=== PATIENT | male | born 1935 | race Caucasian/White ===

== ENCOUNTER 2018-10-10 10:14 | Inpatient (IN) | payer MEDICARE ==
[2018-10-10] MEDS ORDERED: NS 0.9% 1000 ML** 1,000 ML IV ONE (10:30)
--- NOTE | 2018-10-10 10:37 | ED ---
Altered Mental Status - HPI Summary HPI Summary: Patient is an 82 y/o male brought in by EMS who presents to the ED c/o AMS s/p fall. As per EMS, his son last saw him normal at 19:00 last night. This morning he was found on the floor. EMS states that patient is more confused, seems to have RLE weakness, and has a bruise on his right tongue. He c/o strain to his left side. Patient denies any weakness, abdominal pain, WILLETT, CP, or SOB. BP while in room: 169/103. Patient is a poor historian due to his AMS. - History Of Current Complaint Stated Complaint: POSS STROKE PER EMS Time Seen by Provider: 10/10/18 10:21 Hx Obtained From: Patient, EMS, Medical Records Onset/Duration: Unknown Timing: Lasting Hours - Last known normal 19:00 last night Character: Confusion Aggravating Factor(s): Unknown Alleviating Factor(s): Unknown Associated Signs And Symptoms: Positive: Weakness - possible - Allergies/Home Medications Allergies/Adverse Reactions: Allergies Allergy/AdvReac Type Severity Reaction Status Date / Time No Known Allergies Allergy Verified 10/10/18 10:21 PMH/Surg Hx/FS Hx/Imm Hx Endocrine/Hematology History: Denies: Hx Diabetes, Hx Thyroid Disease Cardiovascular History: Reports: Hx Coronary Artery Disease, Hx Hypercholesterolemia - dyslipidemia, Hx Hypertension, Other Cardiovascular Problems/Disorders - stents Respiratory History: Denies: Hx Asthma, Hx Chronic Obstructive Pulmonary Disease (COPD) GI History: Denies: Hx Ulcer History: Reports: Hx Renal Disease - CKD Sensory History: Reports: Hx Contacts or Glasses Opthamlomology History: Reports: Hx Contacts or Glasses - Surgical History Surgery Procedure, Year, and Place: Cardiac Stent placement . Latest November 07, 2011 3 stents. Infectious Disease History: No Infectious Disease History: Denies: Hx Clostridium Difficile, Hx Hepatitis, Hx Human Immunodeficiency Virus (HIV), Hx of Known/Suspected MRSA, Hx Shingles, Hx Tuberculosis, Hx Known/ Suspected VRE, Hx Known/Suspected VRSA, History Other Infectious Disease, Traveled Outside the [place] in Last 30 Days - Family History Known Family History: Positive: Hypertension - Social History Alcohol Use: None Hx Substance Use: No Substance Use Type: Reports: None Hx Tobacco Use: No Smoking Status (MU): Never Smoked Tobacco Have You Smoked in the Last Year: No Review of Systems Negative: Chest Pain Negative: Shortness Of Breath Negative: Abdominal Pain Positive: Other - left-side strain Negative: Headache, Weakness All Other Systems Reviewed And Are Negative: Yes Physical Exam - Summary Physical Exam Summary: Appearance: well appearing, no pain distress Skin: warm, dry, reflects adequate perfusion, no bruises Head/face: normal, no obvious injury Eyes: EOMI, VICKY ENT: mucous membranes moist, contusion on right posterior tongue Neck: supple, non-tender Respiratory: bilateral expiratory wheezes, breath sounds present Cardiovascular: regular rate, irregularly irregular rhythm, pulses symmetrical, no LE edema Abdomen: non-tender, soft Bowel Sounds: present Musculoskeletal: normal, strength/ROM intact Neuro: alert and oriented to person only, slow tremulous motions, some difficulty following commands Triage Information Reviewed: Yes Vital Signs On Initial Exam: Initial Vitals Temp Pulse Resp BP Pulse Ox 98.2 F 79 22 169/103 93 10/10/18 10:19 10/10/18 10:19 10/10/18 10:19 10/10/18 10:19 10/10/18 10:19 Vital Signs Reviewed: Yes - [place] Coma Scale Best Eye Response: 4 - Spontaneous Best Motor Response: 6 - Obeys Commands Best Verbal Response: 4 - Confused Coma Scale Total: 14 Diagnostics - Vital Signs Vital Signs Temp Pulse Resp BP Pulse Ox 10/10/18 10:19 98.2 F 79 22 169/103 93 - Laboratory Result Diagrams: 10/10/18 10:40 10/10/18 10:40 Lab Statement: Any lab studies that have been ordered have been reviewed, and results considered in the medical decision making process. - Radiology CXR Radiology Interpretation Completed By: Radiologist Summary of Radiographic Findings: No radiographic evidence for acute cardiopulmonary abnormality on this. portable chest x-ray. ED physician reviewed radiology report. Brain CT Radiology Interpretation Completed By: Radiologist Summary of Radiographic Findings: 1. No CT apparent acute intracranial abnormality. 2. Chronic findings similar to the September 26, 2013 CT of the brain include involutional changes and evidence of chronic microvascular disease. ED physician reviewed radiology report. - EKG 10:35 Cardiac Rate: NL - 80 bpm EKG Rhythm: Sinus Rhythm ST Segment: Non-Specific EKG Comparison: No Significant Change - as compared to August 2013 Summary of EKG Findings: 1st degree AV block, sinus pause, nl axis National Institutes Of Health - NIH Scale Level of Consciousness: Alert/Keenly Responsive Ask Patient the Month and His/Her Age: Both Correct Ask Pt to Open/Close Eyes and Geodetic Survey Director/Release Non-Paretic Hand: Both Correctly Best Gaze (Only Horizontal Eye Movement): Normal Visual Field Testing: No Visual Loss Facial Paresis-Pt to Smile & Close Eyes or Grimace Symmetry: Normal/Symmetrical Motor Function - Right Arm: No Drift-Holds 10 Seconds Motor Function - Left Arm: No Drift-Holds 10 Seconds Motor Function - Right Leg: No Drift-Holds 10 Seconds Motor Function - Left Leg: No Drift-Holds 10 Seconds Limb Ataxia-Must be out of Proportion to Weakness Present: Absent Sensory (Use Pinprick to Test Arms/Legs/Trunk/Face): Normal Best Language (Describe Picture, Name Items): No Aphasia Dysarthria (Read Several Words): Normal Extinction and Inattention: No Abnormality Total Score: 0 Altered Mental Statu Course/Dx - Course Course Of Treatment: Nurse's notes reviewed. Patient with fall prior to arrival. He is found to be increasingly confused and ataxic. He normally walks without any assistive device. He has no obvious source of infection and currently demonstrates an NIH stroke score of 1 as he is unable to name the month. At first it seemed that he had some left-sided neglect however this is not consistent. There is concern for NPH given the size of his ventricles on CT , his ataxia. I have not seen any episodes of incontinence. Seizure is a possibility given the contusion on the lateral aspect of his right tongue. No seizure history or postictal phase was witnessed. He is not known to have dementia. Hospitalist was contacted and will admit for further testing. - Diagnoses Differential Diagnosis/HQI/PQRI: Hypoglycemia, Injury, Intracranial Bleed, Meningitis, Metabolic Disorder, Sepsis, Seizure, TIA Provider Diagnoses: Fall, Tongue injury, Delirium, Ataxia - Provider Notifications Discussed Care Of Patient With: Satnam Montiel Time Discussed With Above Provider: 12:06 Instructed by Provider To: Admit As Inpatient Discharge - Sign-Out/Discharge Documenting (check all that apply): Patient Departure - Admit Patient Received Moderate/Deep Sedation with Procedure: No - Discharge Plan Condition: Fair Disposition: ADMITTED TO [facility] Referrals: Campos Mcclelland MD [Primary Care Provider] - - Billing Disposition and Condition Condition: FAIR Disposition: Admitted to [facility] - Attestation Statements Document Initiated by Kay: Yes Documenting Scribe: Mis Sherman Provider For Whom Kay is Documenting (Include Credential): Robert Black MD Scribe Attestation: Mis Raza, scribed for Robert Black MD on 10/10/18 at 1325. Scribe Documentation Reviewed: Yes Provider Attestation: The documentation as recorded by the Mis dodge accurately reflects the service I personally performed and the decisions made by , Robert Black MD Status of Scribe Document: Viewed
[2018-10-10 10:50] LABS: ABS Eosinophils 0.1 10^3/ul (0-0.6); ABS Lymphocytes 0.7 10^3/ul (1.0-4.8); ABS Monocytes 0.6 10^3/ul (0-0.8); ABS Neutrophils 5.7 10^3/ul (1.5-7.7); Eosinophil % 1.5 %; Hematocrit 37 % (42-52); Hemoglobin 12.9 g/dL (14.0-18.0); Lymphocyte % 9.8 %; Mean Corpuscular HGB Conc 34 g/dL (31-36); Mean Corpuscular Hemoglobin 33 pg (27-31); Mean Corpuscular Volume 95 fL (80-94); Mean Platelet Volume 6.4 fL (7.4-10.4); Nucleated Red Blood Cells % 0.1; Platelet Count 205 10^3/uL (150-450); Red Blood Count 3.96 10^6 /uL (4.18-5.48); Red Cell Distribution Width 14 % (10.5-15); White Blood Count 7.1 10^3/uL (3.5-10.8)
[2018-10-10 10:55] LABS: INR 1.09 (0.82-1.09)
[2018-10-10 11:06] LABS: Albumin 4.2 g/dL (3.2-5.2); Albumin/Globulin Ratio 1.4 (1-3); BUN/Creatinine Ratio 33.7 (8-20); Calcium 9.8 mg/dL (8.6-10.3); EGFR African American 85.4 (>60); EGFR Non-African American 70.5 (>60); Globulin 2.9 g/dL (2-4); Magnesium 1.7 mg/dL (1.9-2.7); Potassium 3.9 mmol/L (3.5-5.0); Total Bilirubin 0.6 mg/dL (0.2-1.0); Total Protein 7.1 g/dL (6.4-8.9)
[2018-10-10 11:09] LABS: Troponin I 0.01 ng/mL (<0.04)
[2018-10-10 11:43] LABS: TSH (Thyroid Stimulating Horm) 3.14 mcIU/mL (0.34-5.60)
[2018-10-10 12:15] LABS: Urine Appearance Clear; Urine Bacteria Absent (Absent); Urine Bilirubin Negative (Negative); Urine Blood 1+ (Negative); Urine Color Yellow; Urine Glucose Negative (Negative); Urine Ketones 1+ (Negative); Urine Nitrite Negative (Negative); Urine Protein Negative (Negative); Urine Red Blood Cell 2+(6-10/hpf) (Absent); Urine Specific Gravity 1.014 (1.010-1.030); Urine Urobilinogen Negative (Negative); Urine White Blood Cell Absent (Absent)
[2018-10-10 14:12] LABS: Prolactin 14.1 ng/mL (1.0-20.0)
--- NOTE | 2018-10-10 16:51 | HP ---
ADMITTING HISTORY AND PHYSICAL: DATE OF ADMISSION: 10/10/18 CHIEF COMPLAINT: Mental status changes. HISTORY OF PRESENT ILLNESS: The patient is an 82-year-old gentleman with a known history of diabetes, hypothyroidism as well as CAD status post CABG , who was in his usual state of health until this morning. He was last found normal at 7 p.m. last night and a few hours prior to this admission, his son heard a thud in the house and the patient subsequently was found down on the bathroom floor. The son observed that the patient was confused and seemed to be complaining that he was hurting at that time. The patient's son denied that he saw the patient unconscious and was interacting throughout the whole episode ; however, confused. PAST MEDICAL AND SURGICAL HISTORY: coronary artery disease with stents, he mentions that he has not had any stents in; history of hypercholesterolemia; dyslipidemia; hypertension. ALLERGIES: NKDA. FAMILY HISTORY: Unremarkable. SOCIAL HISTORY: Could not be obtained. The patient lives with his who has dementia and his son, Dawit, at [phone]. REVIEW OF SYSTEMS: Could not be reliably obtained given the patient's mental status change. PHYSICAL EXAMINATION GENERAL APPEARANCE: The patient is unfortunately not oriented and a poor historian, but awake. VITAL SIGNS: Revealed blood pressure of 127/89, saturating at 96% at room air, 74 beats per minute heart rate, respiratory rate of 17 per minute. HEENT: Normocephalic, atraumatic. PERRLA. Extraocular muscles intact. Negative for icterus. Moist oral mucosa. Negative throat erythema. NECK: Soft, supple, with no cervical lymphadenopathy. No JVD. CHEST: Clear to auscultation bilaterally. Good air entry. No wheezes, rales. No rhonchi. HEART: S1, S2 within normal limits. Regular rate and rhythm. No murmurs, rubs or gallops. ABDOMEN: Soft, nondistended, nontender, normoactive bowel sounds x4 quadrants. EXTREMITIES: No cyanosis, clubbing, nor edema. PSYCHIATRIC: No active psychosis, depression, suicidal, nor homicidal ideation. SKIN: Warm to touch. DIAGNOSTIC STUDIES/LABORATORY DATA: Most recent and pertinent laboratories drawn show CBC with WBC of 7.1, platelets of 205, H and H of 12.9 and 37. Normal sodium and potassium. BUN and creatinine of 34 and 1.01. UA of 1.014 with no pyuria and no leukocyte esterase. Chest x-ray shows no acute disease. EKG shows sinus arrhythmia with 80 beats per minute with no ST segment changes and QTc of 462. Brain CT shows no acute disease. ASSESSMENT AND PLAN: The patient is an 82-year-old gentleman with history of diabetes, hypothyroidism, and coronary artery disease, being admitted for mental status change causing a fall. 1. Mental status change and confusion and fear. Cause: According to the patient's son, the patient does not have any history of dementia, although it is possible that the patient may have some mild cognitive deficit. His laboratory workup does not suggest an acute infectious process with negative UA as well as a chest x-ray. We will obtain an MRI of the brain. Given hematoma on the right side of the tongue, it is possible that the patient may have had seizures and I will obtain EEG and obtain serum prolactin and we will touch base with Dr. Diaz. 2. Coronary artery disease. We will continue dual antiplatelet therapy. Unclear why the patient is not on any statins and we will obtain LDL in a.m., and if not at goal, we will place the patient on statin. It is possible that given his advanced age, there might have been a discussion in the past for this to have been discontinued but unclear of the reason. 3. DVT prophylaxis. We will place the patient on heparin subcu. 4. Disposition. For PT eval. [id number] #: [id number]/CPS #: [id number] ANYI
[2018-10-10] MEDS: Heparin VIAL(*) 5000 UNITS/ML VIAL (FIVE THOUSAND) SUBCUT SCH (20:12)
[2018-10-11 06:59] LABS: ABS Eosinophils 0.1 10^3/ul (0-0.6); ABS Lymphocytes 1.1 10^3/ul (1.0-4.8); ABS Monocytes 0.8 10^3/ul (0-0.8); ABS Neutrophils 4.3 10^3/ul (1.5-7.7); Eosinophil % 2.2 %; Hematocrit 36 % (42-52); Hemoglobin 12.4 g/dL (14.0-18.0); Lymphocyte % 17.6 %; Mean Corpuscular HGB Conc 34 g/dL (31-36); Mean Corpuscular Hemoglobin 32 pg (27-31); Mean Corpuscular Volume 94 fL (80-94); Mean Platelet Volume 6.7 fL (7.4-10.4); Nucleated Red Blood Cells % 0.1; Platelet Count 204 10^3/uL (150-450); Red Blood Count 3.86 10^6 /uL (4.18-5.48); Red Cell Distribution Width 14 % (10.5-15); White Blood Count 6.4 10^3/uL (3.5-10.8)
[2018-10-11 07:18] LABS: Albumin 3.9 g/dL (3.2-5.2); Albumin/Globulin Ratio 1.4 (1-3); Calcium 9.6 mg/dL (8.6-10.3); EGFR African American 100.1 (>60); EGFR Non-African American 82.7 (>60); Globulin 2.8 g/dL (2-4); HDL Cholesterol 44.1 mg/dL; Magnesium 1.5 mg/dL (1.9-2.7); Phosphorus 3.1 mg/dL (2.5-5.0); Potassium 3.6 mmol/L (3.5-5.0); Total Bilirubin 0.9 mg/dL (0.2-1.0); Total Protein 6.7 g/dL (6.4-8.9)
[2018-10-11] MEDS: Magnesium Sulf 4 GM/100 ML IV* 4,000 MG/100 ML BAG IVPB ONE ×2 (10:01→14:41)
[2018-10-11] MEDS: Calcitriol CAP* 0.25 MCG PO SCH (10:03)
[2018-10-11] MEDS: Aspirin 81 mg CHEW TAB* 81 MG TAB.CHEW PO SCH (10:03)
[2018-10-11] MEDS: Clopidogrel TAB* 75 MG PO SCH (10:03)
[2018-10-11] MEDS: Heparin VIAL(*) 5000 UNITS/ML VIAL (FIVE THOUSAND) SUBCUT SCH ×2 (10:03→19:59)
--- NOTE | 2018-10-11 10:45 | HP ---
ADDENDUM: ALLERGIES: NKDA. SOCIAL HISTORY: Could not be obtained. The patient lives with his who has dementia and his son, Dawit, at [phone]. PHYSICAL EXAMINATION GENERAL APPEARANCE: The patient is unfortunately not oriented and a poor historian, but awake. VITAL SIGNS: Revealed blood pressure of 127/89, saturating at 96% at room air, 74 beats per minute heart rate, respiratory rate of 17 per minute. HEENT: Normocephalic, atraumatic. PERRLA. Extraocular muscles intact. Negative for icterus. Moist oral mucosa. Negative throat erythema. NECK: Soft, supple, with no cervical lymphadenopathy. No JVD. CHEST: Clear to auscultation bilaterally. Good air entry. No wheezes, rales. No rhonchi. HEART: S1, S2 within normal limits. Regular rate and rhythm. No murmurs, rubs or gallops. ABDOMEN: Soft, nondistended, nontender, normoactive bowel sounds x4 quadrants. EXTREMITIES: No cyanosis, clubbing, nor edema. PSYCHIATRIC: No active psychosis, depression, suicidal, nor homicidal ideation. SKIN: Warm to touch. DIAGNOSTIC STUDIES/LABORATORY DATA: Most recent and pertinent laboratories drawn show CBC with WBC of 7.1, platelets of 205, H and H of 12.9 and 37. Normal sodium and potassium. BUN and creatinine of 34 and 1.01. UA of 1.014 with no pyuria and no leukocyte esterase. Chest x-ray shows no acute disease. EKG shows sinus arrhythmia with 80 beats per minute with no ST segment changes and QTc of 462. Brain CT shows no acute disease. ASSESSMENT AND PLAN: The patient is an 82-year-old gentleman with history of diabetes, hypothyroidism, and coronary artery disease, being admitted for mental status change causing a fall. 1. Mental status change and confusion and fear. Cause: According to the patient's son, the patient does not have any history of dementia, although it is possible that the patient may have some mild cognitive deficit. His laboratory workup does not suggest an acute infectious process with negative UA as well as a chest x-ray. We will obtain an MRI of the brain. Given hematoma on the right side of the tongue, it is possible that the patient may have had seizures and I will obtain EEG and obtain serum prolactin and we will touch base with Dr. Diaz. 2. Coronary artery disease. We will continue dual antiplatelet therapy. Unclear why the patient is not on any statins and we will obtain LDL in a.m., and if not at goal, we will place the patient on statin. It is possible that given his advanced age, there might have been a discussion in the past for this to have been discontinued but unclear of the reason. 3. Question of history of diabetes and hypothyroidism. The patient is currently not on any medications regarding these and hence we will obtain TSH and we will continue to monitor blood sugars, which currently appear to be normal. 4. DVT prophylaxis. We will place the patient on heparin subcu. 5. Disposition. For PT laryal. [id number]/[facility] #: [id number]
--- NOTE | 2018-10-11 16:40 | PN ---
Subjective Date of Service: 10/11/18 Interval History: Pt seen and examined. Meds and labs reviewed. CC: N/A ROS: Denied WILLETT/dizziness, F/C, N/V, CP, SOB, increased cough, sputum production , abd pain, diarrhea, constipation, dysuria, myalgias, arthralgias, throat pain , and new skin lesions. The rest of the 14 point ROS are unremarkable. PHYSICAL EXAM: GEN APPEARANCE: Awake, not in acute distress, not oriented x 4 HEENT: NC/AT, PERRLA, moist oral mucosa, (-) throat erythema NECK: Soft, supple, (-) cervical LAD, (-)JVD HEART: S1S2 WNL, RRR, No MRG CHEST: CTA, BL, GAE, No W/R/R ABD: Soft, ND/NT, NABS 4x Q EXT: No C/C/E SKIN: Warm to touch PSYCH: No active psychosis, hallucinations, depression, SI/HI Objective Active Medications: Aspirin (Aspirin 81 Mg Chew Tab*) 81 mg PO DAILY [facility] Last Admin: 10/11/18 10:03 Dose: 81 mg Atorvastatin Calcium (Lipitor*) 80 mg PO 2100 ONE Stop: 10/11/18 21:01 Calcitriol (Rocaltrol Cap*) 0.25 mcg PO DAILY [facility] Last Admin: 10/11/18 10:03 Dose: 0.25 mcg Clopidogrel Bisulfate (Plavix Tab*) 75 mg PO DAILY [facility] Last Admin: 10/11/18 10:03 Dose: 75 mg Heparin Sodium (Porcine) (Heparin Vial(*)) 5,000 units SUBCUT Q12HR [facility] Last Admin: 10/11/18 10:03 Dose: 5,000 units Vital Signs - 8 hr 10/11/18 15:34 Temperature 97.6 F Pulse Rate 86 Respiratory 16 Rate Blood Pressure 154/96 (mmHg) O2 Sat by Pulse 93 Oximetry Oxygen Devices in Use Now: None Result Diagrams: 10/11/18 06:34 10/11/18 06:34 Microbiology and Other Data: Microbiology 10/10/18 11:37 Aerobic Blood Culture - Preliminary Blood Venous No Growth Day 1 Anaerobic Blood Culture - Preliminary No Growth Day 1 10/10/18 10:40 Aerobic Blood Culture - Preliminary Blood Venous No Growth Day 1 Anaerobic Blood Culture - Preliminary No Growth Day 1 Assess/Plan/Problems-Billing Assessment: - Patient Problems (1) Change in mental status Current Visit: Yes Status: Acute Code(s): R41.82 - ALTERED MENTAL STATUS, UNSPECIFIED SNOMED Code(s): 549437633 Comment: -Likely due to an undiagnosed dementia w/behavioral issues -Will hold off on Depakote and/or Gabapentin unless pt is difficult to re-direct -MRI: NAD; no signs consistent w/CVA -Will await official input from Neuro (2) CAD (coronary artery disease) Current Visit: Yes Status: Acute Code(s): I25.10 - ATHSCL HEART DISEASE OF [place] CORONARY ARTERY W/O ANG PCTRS SNOMED Code(s): 46373009 Comment: -Continue DAPT and statins (3) DVT prophylaxis Current Visit: Yes Status: Acute Code(s): Z29.9 - ENCOUNTER FOR PROPHYLACTIC MEASURES, UNSPECIFIED SNOMED Code(s): 611646420 Comment: -Continue Heparin SQ Status and Disposition: -D/W pts son today and mentions given above diagnosis and currently taking care of his mother who also carries a diagnosis of dementia, that he would prefer his father to go to [facility] first and then decide to further bring him home depending on how he does vs. converting him to LTC in facility -Will discuss w/care coordinators in AM
--- NOTE | 2018-10-11 16:49 | CONS ---
NEUROLOGY CONSULTATION NOTE: DATE OF SERVICE: 10/11/18 CONSULTING PROVIDER: Satnam Montiel MD. REASON FOR CONSULT: Mental status change and confusion. CHIEF COMPLAINT: Confusion. HISTORY OF PRESENT ILLNESS: Mr. Lake is an 82-year-old right-handed man who has a known history of undiagnosed dementia, who presented to [facility] on 10/10/18 after a fall. The history was obtained by discussing the case with the patient's son, Dawit, via telephone, as the patient is demented and cannot provide any medical history. The patient is only alert to self, but not place or time. According to Dawit, Mr. Lake has been "getting old and his mind is not the same"; he seems confused all the time. He stopped driving 1 year ago due to the progressive confusion. The patient still is able to feed himself, but not cook. He is able to dress himself. Dawit is taking care of both parents for whom his mother suffers from Alzheimer's dementia. However, the patient has a different type of memory problem, and according to Dawit, it is mostly affecting his critical thinking and it is progressively declining. The patient apparently fell going to the bathroom yesterday. He could not communicate if he had any pain. This was new according to Dawit. He was not able to stand up and ambulate. He felt off balance. Dawit was able to get him up and place him in a nearby bed. There has been no recent illnesses. The patient is afebrile. The patient does not use any assistive device to ambulate. Dawit stated that the patient's balance has worsened and he usually has to use two trekking poles when walking around the house. The patient denied any headaches or visual disturbance. The patient had a CT of the head that showed no acute intracranial abnormality with cortical atrophy and ventriculomegaly. 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 An MRI of the brain was obtained, there was no evidence of stroke. This was a motion degraded study. I discussed the case with Dr. Marinelli, who reassured that the CAT scan has not significantly changed since 2013. The patient does have history of urinary incontinence and memory problems, but does not have the magnetic gait. PAST MEDICAL HISTORY: Dementia. MEDICATIONS: Plavix 75 mg p.o. daily. The patient was started on aspirin and high dose atorvastatin. FAMILY HISTORY: Unknown due to the patient's dementia. SOCIAL HISTORY: The patient lives with his spouse and son. He denied any alcohol or tobacco use. REVIEW OF SYSTEMS: A 14-point review of systems was obtained and otherwise negative, but I do not think review of systems was accurate, as the patient denied any symptoms. PHYSICAL EXAMINATION: General: A well-nourished, disheveled, elderly man in no acute distress. He is inappropriately laughing throughout the history process. Head: Normocephalic without obvious abnormality. Eyes: Conjunctivae/ corneas are clear. Neck is supple and symmetrical with no carotid bruits. Lungs are clear to auscultation bilaterally. Cardiovascular: Regular rate and rhythm. Extremities: Normal range of motion with no cyanosis. Skin: Mild ecchymosis in the extensor portion of the forearms. Psych: Affect is broad with elevated mood. Inappropriate laughter. Neurological Examination: Awake and alert to only self, but he is not alert place or time. He has severe psychomotor slowing due to dementia. Cranial Nerves: Normal to confrontation testing bilaterally. Pupils are mid range and reactive to light. Normal consensual response. Sensation is intact on the forehead, cheeks, and jaw to light touch. No facial droop. He is able to hear throughout the history process. Tongue is symmetrical, midline with no atrophy or fasciculation. Motor Examination: No abnormal movements or pronator drift. He has increase in tone in left upper and lower extremities. Normal tone in the right upper extremity. He has bilateral action induced tremors. Otherwise, strength is 5/ 5 throughout. Reflexes, right/left: Brachioradialis 2/3, biceps 2/3, triceps 2 /3, patella 2/3, ankle 2/2, plantar flexor/flexor. Sensation is intact to light touch throughout. Coordination: Normal naltma-wb-bfea. Gait: Wide based gait, spastic gait. No ataxia. LABORATORY DATA: WBC 6.4, hemoglobin of 12.4, hematocrit of 36, platelet count of 204. Sodium 136, potassium 3.6, creatinine is 0.88, hemoglobin A1c 5.8, magnesium 1.5, LDL 170, TSH 3.14. Urinalysis negative for pyuria. ASSESSMENT AND RECOMMENDATIONS: Mr. Shahbaz Lake is an 82-year-old man who presented with an episode of worsening confusion. 1. Fall, followed by worsening of dementia - I do not think that the patient has encephalopathy, but mostly progressive dementia. The etiology of the acutely worsening dementia is unclear at this time. He does not have a stroke. We will check for possible vitamin deficiency. His TSH is within normal range. He has no underlying infections. I have ordered a vitamin B12 level. Seizures can definitely be a cause of his sudden onset disorientation and fall. He does have an arachnoid cyst compressing on the left temporal lobe, which can cause seizures; therefore, I am starting him on levetiracetam 250 mg twice daily to prevent further seizures is recommended. 2. Ventriculomegaly - there is slight disproportion of ventriculomegaly to the cortical volume loss. However, this has been present since 2013, although he does have 2/3 triads for normal pressure hydrocephalus, I do not think this is the cause of his acute change in mentation. I do recommend further evaluation by neurosurgery as an outpatient. He may be a candidate to undergo an LP to relieve some of the CSF elevated pressure and clinically monitor his symptoms. This cannot be done as an outpatient given that he is on Plavix and Plavix will need to be held for at least 7 days. 3. Dementia - the differential diagnosis given his frontotemporal atrophy is frontotemporal dementia, although can entirely exclude chronic normal pressure hydrocephalus. We will rule out any vitamin B12 related memory problems. Hold off any treatment for the dementia. Recommend starting treatment as an outpatient. I will continue to follow. TIME SPENT: I spent a total of 70 minutes of which more than 50% of this was spent on obtaining history, evaluating the patient, examining the patient, and discussing the treatment plan with Dawit and the primary provider. [id number]/[facility]PS #: [id number] ANYI
[2018-10-11] MEDS ORDERED: Atorvastatin* 80 MG TAB PO ONE (21:00)
--- NOTE | 2018-10-11 23:34 | EEG ---
ELECTROENCEPHALOGRAPHY REPORT: DATE OF STUDY: 10/11/18 - ROOM #450 DATE READ: 10/11/18 DURATION: 8:48 a.m. to 9:28 a.m. ORDERED BY: Dr. Satnam Montiel. MEDICATIONS: 1. Aspirin. 2. Plavix. 3. Heparin. 4. Rocaltrol. INDICATION: Mr. Lake is an 82-year-old man who has a history of dementia, who presented with unresponsive episode of seizure-like activity. This EEG was requested to evaluate for epileptiform discharges or electrographic seizures. This EEG was ordered by Dr. Satnam Montiel. CLINICAL STATE: Waking. REPORT: The background consisted of a mixed frequency slowing in the delta and theta range with appropriate organization with clearly defined anterior- posterior voltage. There was a slow waking background rhythm of 7 Hz, which was symmetrical and showed normal reactivity. Anteriorly, there was an expected pattern of lower voltage, irregular mixed faster frequencies. The most prominent feature of this recording was a nearly continuous delta mixed with theta slowing over the left temporal region. There were no epileptiform discharges or electrographic seizures. Single electrode EKG showed sinus tachycardia with a rate of 110 beats per minute. Photic stimulation and hyperventilation were not performed. IMPRESSION: This is an abnormal waking EEG due to slow posterior dominant rhythm and prominent delta slowing over the left frontotemporal region. Otherwise, there was some retained organization or activity. These findings are suggestive of a mild nonspecific encephalopathy, which can be seen in the setting of neurodegenerative disorder with prominent slowing over the left frontotemporal region suggestive of a focal neuronal dysfunction in that area. There were no clear epileptiform discharges or electrographic seizures. [id number]/[facility] #: [id number] [facility]
[2018-10-12] MEDS ORDERED: Magnesium Sulf 4 GM/100 ML IV* 4,000 MG/100 ML BAG IVPB ONE (09:00)
[2018-10-12] MEDS: Calcitriol CAP* 0.25 MCG PO SCH (10:21)
[2018-10-12] MEDS: Clopidogrel TAB* 75 MG PO SCH (10:21)
[2018-10-12] MEDS: Aspirin 81 mg CHEW TAB* 81 MG TAB.CHEW PO SCH (10:21)
[2018-10-12] MEDS: Heparin VIAL(*) 5000 UNITS/ML VIAL (FIVE THOUSAND) SUBCUT SCH ×2 (10:21→20:33)
--- NOTE | 2018-10-12 16:11 | PN ---
Subjective Date of Service: 10/12/18 Interval History: Pt seen and examined. Meds and labs reviewed. CC: N/A ROS: Denied WILLETT/dizziness, F/C, N/V, CP, SOB, increased cough, sputum production , abd pain, diarrhea, constipation, dysuria, myalgias, arthralgias, throat pain , and new skin lesions. The rest of the 14 point ROS are unremarkable. PHYSICAL EXAM: GEN APPEARANCE: Awake, not in acute distress, not oriented x 4 HEENT: NC/AT, PERRLA, moist oral mucosa, (-) throat erythema NECK: Soft, supple, (-) cervical LAD, (-)JVD HEART: S1S2 WNL, RRR, No MRG CHEST: CTA, BL, GAE, No W/R/R ABD: Soft, ND/NT, NABS 4x Q EXT: No C/C/E SKIN: Warm to touch PSYCH: No active psychosis, hallucinations, depression, SI/HI Objective Active Medications: Aspirin (Aspirin 81 Mg Chew Tab*) 81 mg PO DAILY [facility] Calcitriol (Rocaltrol Cap*) 0.25 mcg PO DAILY [facility] Last Admin: 10/12/18 10:21 Dose: 0.25 mcg Clopidogrel Bisulfate (Plavix Tab*) 75 mg PO DAILY [facility] Heparin Sodium (Porcine) (Heparin Vial(*)) 5,000 units SUBCUT Q12HR [facility] Last Admin: 10/12/18 10:21 Dose: 5,000 units Levetiracetam (Keppra Tab*) 250 mg PO BID [facility] Magnesium Oxide (Magox 400 Tab*) 800 mg PO DAILY [facility] Vital Signs - 8 hr 10/12/18 10/12/18 10:21 11:06 Temperature 97.8 F 97.8 F Pulse Rate 89 86 Respiratory 16 16 Rate Blood Pressure 138/62 120/65 (mmHg) O2 Sat by Pulse 99 100 Oximetry Oxygen Devices in Use Now: None Result Diagrams: 10/11/18 06:34 10/11/18 06:34 Microbiology and Other Data: Microbiology 10/10/18 11:37 Aerobic Blood Culture - Preliminary Blood Venous No Growth Day 1 Anaerobic Blood Culture - Preliminary No Growth Day 1 10/10/18 10:40 Aerobic Blood Culture - Preliminary Blood Venous No Growth Day 1 Anaerobic Blood Culture - Preliminary No Growth Day 1 Assess/Plan/Problems-Billing Assessment: - Patient Problems (1) Change in mental status Current Visit: Yes Status: Acute Code(s): R41.82 - ALTERED MENTAL STATUS, UNSPECIFIED SNOMED Code(s): 218135285 Comment: -Likely due to an undiagnosed dementia w/behavioral issues w/possibility of seizures due to arachnoid cyst as a possible focus, complicated w/possible NPH. -Will hold off on Depakote and/or Gabapentin unless pt is difficult to re-direct -MRI: NAD; no signs consistent w/CVA; however w/arachnoid cyst that could be a seizure focus and enlarged ventricles that may be suggestive of NPH (given triad of dementia, gait disturbance, and urinary/stool incontinence); explained to son that dementia is unlikely due improve w/lumbar tap but might help some symptoms of gait and incontinence -D/W Dr. Cho who mentioned he will schedule pt for outpt LP in 2 weeks and will defer (2) CAD (coronary artery disease) Current Visit: Yes Status: Acute Code(s): I25.10 - ATHSCL HEART DISEASE OF [place] CORONARY ARTERY W/O ANG PCTRS SNOMED Code(s): 53772705 Comment: -Continue DAPT and statins -To hold Plavix 1 week before pt to see Dr. Cho in outpt (3) DVT prophylaxis Current Visit: Yes Status: Acute Code(s): Z29.9 - ENCOUNTER FOR PROPHYLACTIC MEASURES, UNSPECIFIED SNOMED Code(s): 542679333 Comment: -Continue Heparin SQ Status and Disposition: -LOC placement pending -To hold Plavix 1 week before planned oupt LP w/Dr. Cho
--- NOTE | 2018-10-12 17:19 | PN ---
Subjective Date of Service: 10/12/18 Length of Stay: 2 Days Neurology is following for fall, possible seizure, dementia, and word finding difficulty. Interval History: According to Dr. Montiel, he met with Dawit who stated the patient is not at his baseline. The patient is having word finding difficulty, confused, minimally cooperating with staff, and not ambulating independently. He has incontinence which is a new problem for him. Dawit feels like the patient's presentation is too rapid for dementia. He did endorse that the patient has baseline memory problems but not to this degree. The patient is resting comfortable today. He is pleasant. He does not verbalize unless talked to. He is in no distress. Review of Systems: Denied CP, SOB, or palpitations. Objective Active Medications: Aspirin (Aspirin 81 Mg Chew Tab*) 81 mg PO DAILY [facility] Calcitriol (Rocaltrol Cap*) 0.25 mcg PO DAILY [facility] Last Admin: 10/12/18 10:21 Dose: 0.25 mcg Clopidogrel Bisulfate (Plavix Tab*) 75 mg PO DAILY [facility] Heparin Sodium (Porcine) (Heparin Vial(*)) 5,000 units SUBCUT Q12HR [facility] Last Admin: 10/12/18 10:21 Dose: 5,000 units Levetiracetam (Keppra Tab*) 250 mg PO BID [facility] Magnesium Oxide (Magox 400 Tab*) 800 mg PO DAILY [facility] Vital Signs 10/11/18 10/11/18 10/12/18 19:28 19:40 00:38 Temperature 98.1 F 97.9 F Pulse Rate 97 38 Respiratory 16 18 16 Rate Blood Pressure 125/74 140/65 (mmHg) O2 Sat by Pulse 96 91 Oximetry 10/12/18 10/12/18 10/12/18 04:04 08:00 10:21 Temperature 97.8 F 97.8 F Pulse Rate 63 89 Respiratory 18 16 16 Rate Blood Pressure 131/52 138/62 (mmHg) O2 Sat by Pulse 96 99 Oximetry 10/12/18 11:06 Temperature 97.8 F Pulse Rate 86 Respiratory 16 Rate Blood Pressure 120/65 (mmHg) O2 Sat by Pulse 100 Oximetry Intake and Output Last 24 Hours 10/10/18 10/11/18 10/12/18 10/13/18 06:59 06:59 06:59 06:59 Intake Total 1000 1300 690 Output Total 250 0 250 Balance 750 1300 440 Weight 180 lb 4.8 oz 180 lb 4.8 oz Intake: IV Fluids 1000 IVPB 100 mag 100 Oral 0 1200 690 Output: Urine 250 0 250 Other: Estimated Void Large Large # Voids 1 Oxygen Devices in Use Now: None Neurology Exam: General: Frail ill appearing tall elderly man who is disheveled and is in no distress. HEENT: Normocephelic/atraumatic. Anterior laceration of the tongue slightly on the right. No active bleeding. Neck: Supple Extremities: No clubbing, cyanosis, or edema Neurological Findings: Awake, alert, and oriented to person but not place or time. He is having word finding difficulty. He has xsfhtetv-aa-sqloom psychmotor slowing. Cranial Nerve: PERRL, EOM intact, VFF, no nystagmus, face symmetric bilaterally. Motor: s/s throughout, proximal and distal extremities x4 tone/bulk normal Sensation: intact to LT/PP bilaterally upper and lower extremities Deep Tendon Reflex: 2+ symmetric in the upper, 3+ at the knees and 1+ at the ankles bilaterally. Extensor plantar response bilaterally. Finger to nose, rapid alternating movements intact without tremor, no dysdiadochokinesia Gait: spastic gait in bilateral lower extremities. Result Diagrams: 10/11/18 06:34 10/11/18 06:34 Microbiology and Other Data: Microbiology 10/10/18 11:37 Aerobic Blood Culture - Preliminary Blood Venous No Growth Day 1 Anaerobic Blood Culture - Preliminary No Growth Day 1 10/10/18 10:40 Aerobic Blood Culture - Preliminary Blood Venous No Growth Day 1 Anaerobic Blood Culture - Preliminary No Growth Day 1 Assessment/Plan Mr. Lake is an 82-year-old man with history of undiagnosed cognitive impairment who presented to [facility] after a fall and disorientation. 1. Suspect seizure given that he had tongue laceration and incontinence. 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 We agreed to start low dose levetiracetam 250 mg PO twice daily. The side effects of levetiracetam include, but are not limited to, irritability or agitation. He should discontinue the medication if he develops these symptoms. 2. Ventriculomegaly- concern for NPH given that he has rapid progressive dementia, incontinence, spasticity in the lower extremities, and gait abnormalities. Recommend outpatient LP to remove CSF and to assess if he has any cognitive or improvement in his motor function. We cannot do the LP here given that he is on Plavix which has to be held for 5-7 days. Please note that the patient should be closely followed by a physical therapy specialist who would document his motor function before and after the LP. Unfortunately, the ventriculomegaly has been there since 2013, so I don't think a large volume lumbar puncture will significantly improve his symptoms. Other differential diagnosis for his encephalopathy include post-ictal aphasia from a recent seizure. We excluded stroke given the negative DWI findings. I will continue to follow. The patient will need rehabilitation placement. Please have the patient follow-up with me in 2 weeks after the lumbar puncture is done.
[2018-10-12] MEDS ORDERED: OLANzapine TAB*ODT* 5 MG STA (17:28)
[2018-10-12] MEDS: traZODone TAB* 50 MG TAB PO PRN (20:33)
[2018-10-12] MEDS: levETIRAcetam TAB* 500 MG PO SCH (20:33)
[2018-10-13 06:57] LABS: Hematocrit 34 % (42-52); Hemoglobin 11.9 g/dL (14.0-18.0); Mean Corpuscular HGB Conc 36 g/dL (31-36); Mean Corpuscular Hemoglobin 33 pg (27-31); Mean Corpuscular Volume 94 fL (80-94); Mean Platelet Volume 6.7 fL (7.4-10.4); Platelet Count 200 10^3/uL (150-450); Red Blood Count 3.56 10^6 /uL (4.18-5.48); Red Cell Distribution Width 14 % (10.5-15); White Blood Count 6.5 10^3/uL (3.5-10.8)
[2018-10-13 07:12] LABS: Albumin 3.6 g/dL (3.2-5.2); Albumin/Globulin Ratio 1.4 (1-3); BUN/Creatinine Ratio 23.8 (8-20); Calcium 9.2 mg/dL (8.6-10.3); EGFR African American 85.4 (>60); EGFR Non-African American 70.5 (>60); Globulin 2.5 g/dL (2-4); Magnesium 2.4 mg/dL (1.9-2.7); Phosphorus 3.9 mg/dL (2.5-5.0); Potassium 3.8 mmol/L (3.5-5.0); Total Bilirubin 0.7 mg/dL (0.2-1.0); Total Protein 6.1 g/dL (6.4-8.9)
[2018-10-13] MEDS: Aspirin 81 mg CHEW TAB* 81 MG TAB.CHEW PO SCH (09:56)
[2018-10-13] MEDS: Clopidogrel TAB* 75 MG PO SCH (09:57)
[2018-10-13] MEDS: Heparin VIAL(*) 5000 UNITS/ML VIAL (FIVE THOUSAND) SUBCUT SCH ×3 (09:57→20:32)
[2018-10-13] MEDS: levETIRAcetam TAB* 500 MG PO SCH (09:57)
[2018-10-13] MEDS: Magnesium Oxide TAB* 400 MG PO SCH (09:58)
[2018-10-13] MEDS: Calcitriol CAP* 0.25 MCG PO SCH (09:59)
[2018-10-13] MEDS: Divalproex Sprinkle CAP* 125 MG PO SCH ×2 (11:11→20:28)
--- NOTE | 2018-10-13 11:11 | PN ---
Subjective Date of Service: 10/13/18 Interval History: Pt is currently quite agitated per nursing. I am called urgently to his room. The patient is only able to tell me he wants to "escape." He does not answer any of my other questions. Objective Active Medications: Aspirin (Aspirin 81 Mg Chew Tab*) [address] [facility] Last Admin: 10/13/18 09:56 Dose: 81 mg Calcitriol (Rocaltrol Cap*) 0.[address] [facility] Last Admin: 10/13/18 09:59 Dose: 0.25 mcg Clopidogrel Bisulfate (Plavix Tab*) [address] [facility] Last Admin: 10/13/18 09:57 Dose: 75 mg Divalproex Sodium (Depakote Sprinkle Cap*) [address] [facility] Heparin Sodium (Porcine) (Heparin Vial(*)) 5,[address] [facility] Last Admin: 10/13/18 10:45 Dose: Not Given Magnesium Oxide (Magox 400 Tab*) [address] [facility] Last Admin: 10/13/18 09:58 Dose: 800 mg Trazodone HCl (Desyrel Tab*) 25 mg PO BEDTIME PRN PRN Reason: Insomnia/Agitation Last Admin: 10/12/18 20:33 Dose: 25 mg Vital Signs - 8 hr 10/13/18 10/13/18 04:11 09:16 Temperature 98.0 F 97.1 F Pulse Rate 72 69 Respiratory 16 16 Rate Blood Pressure 90/74 108/61 (mmHg) O2 Sat by Pulse 99 95 Oximetry Oxygen Devices in Use Now: None Appearance: Elderly male sitting up in bed, slightly agitated but in NAD Eyes: No Scleral Icterus Ears/Nose/Mouth/Throat: Mucous Membranes Moist Respiratory: Symmetrical Chest Expansion and Respiratory Effort, Clear to Auscultation - anteriorly Cardiovascular: NL Sounds; No Murmurs; No JVD, RRR Abdominal: NL Sounds; No Tenderness; No Distention Extremities: No Clubbing, Cyanosis Skin: No Nodules or Sclerosis Neurological: - - confused, agitated Result Diagrams: 10/13/18 06:09 10/13/18 06:09 Microbiology and Other Data: Microbiology 10/10/18 11:37 Aerobic Blood Culture - Preliminary Blood Venous No Growth Day 1 Anaerobic Blood Culture - Preliminary No Growth Day 1 10/10/18 10:40 Aerobic Blood Culture - Preliminary Blood Venous No Growth Day 1 Anaerobic Blood Culture - Preliminary No Growth Day 1 Assess/Plan/Problems-Billing Mr. Lake is an 82-year-old man with history of CAD and likely undiagnosed cognitive impairment who presented to [facility] after a fall with AMS. - Patient Problems (1) Change in mental status Current Visit: Yes Status: Acute Code(s): R41.82 - ALTERED MENTAL STATUS, UNSPECIFIED SNOMED Code(s): 289495135 Comment: Differential diagnosis is broad and includes seizure with prolonged post-ictal state, delirium, NPH or progressive dementia or a combination of the above. We are treating for possible seizuire as the patient has a risk factor for seizure (arachnoid cyst pushing on the temporal lobe). He was started on keppra 250 mg BID but now that he is markedly agitated will stop the keppra and start depakote sprinkles 250mg BID. The depakote may help with his behavioral issues. The patient likely has underlying dementia but it is unclear why he worsened so suddenly. NPH may be an underlying issue but again does not present so rapidly. (2) CAD (coronary artery disease) Current Visit: Yes Status: Acute Code(s): I25.10 - ATHSCL HEART DISEASE OF [place] CORONARY ARTERY W/O ANG PCTRS SNOMED Code(s): 32075769 Comment: Continue plavix and ASA for now. Once appt with Dr. Cho confirmed will need to get outpatient LP arranged- pt will need to be off plavix for 1 week prior to that procedure. (3) DVT prophylaxis Current Visit: Yes Status: Acute Code(s): Z29.9 - ENCOUNTER FOR PROPHYLACTIC MEASURES, UNSPECIFIED SNOMED Code(s): 474407462 Comment: SQ heparin (4) Full code status Current Visit: Yes Status: Acute Code(s): Z78.9 - OTHER SPECIFIED HEALTH STATUS SNOMED Code(s): 074662107 Status and Disposition: .
--- NOTE | 2018-10-13 14:04 | PN ---
Subjective Date of Service: 10/13/18 Length of Stay: 3 Days Neurology is following for the patient's encephalopathy. Interval History: Mr. Lake became agitated and was trying to get out of bed today. He had some agitation last night when family where in the room. He was given Olanzapine. He slept well overnight. Today, he is trying to remove any lines that he has attached to him. He told Dr. Jewell that he is trying "to escape." He seemed calm after taking the Depakote. He was recently started on levetiracetam which may cause increase in irritability and agitation. There has been no witnessed seizures. I spoke to both Radha ([id number]) and Dawit who both shared some concerns with me. The family seems to be in agreement that the patient has history of cognitive decline but this has been a drastic decline over the past few days. Dawit informed me that the patient is not incontinence, except for two instances where he soiled himself over the past one month. Today, the patient denied any headaches. He denied focal weakness or paresthesia. Review of Systems: Denied CP, SOB, or palpitations. Objective Active Medications: Aspirin (Aspirin 81 Mg Chew Tab*) 81 mg PO DAILY [facility] Last Admin: 10/13/18 09:56 Dose: 81 mg Calcitriol (Rocaltrol Cap*) 0.25 mcg PO DAILY [facility] Last Admin: 10/13/18 09:59 Dose: 0.25 mcg Clopidogrel Bisulfate (Plavix Tab*) 75 mg PO DAILY [facility] Last Admin: 10/13/18 09:57 Dose: 75 mg Divalproex Sodium (Depakote Sprinkle Cap*) 250 mg PO BID [facility] Last Admin: 10/13/18 11:11 Dose: 250 mg Heparin Sodium (Porcine) (Heparin Vial(*)) 5,000 units SUBCUT Q12HR [facility] Last Admin: 10/13/18 10:45 Dose: Not Given Magnesium Oxide (Magox 400 Tab*) 800 mg PO DAILY [facility] Last Admin: 10/13/18 09:58 Dose: 800 mg Trazodone HCl (Desyrel Tab*) 25 mg PO BEDTIME PRN PRN Reason: Insomnia/Agitation Last Admin: 10/12/18 20:33 Dose: 25 mg Vital Signs 05/14/19 05/14/19 05/15/19 15:14 18:30 01:04 Temperature 97.2 F 97.7 F Pulse Rate 81 114 Respiratory 20 20 20 Rate Blood Pressure 144/82 155/67 (mmHg) O2 Sat by Pulse 96 90 Oximetry 10/13/18 10/13/18 10/13/18 04:11 08:00 09:16 Temperature 98.0 F 97.1 F Pulse Rate 72 69 Respiratory 16 16 16 Rate Blood Pressure 90/74 108/61 (mmHg) O2 Sat by Pulse 99 95 Oximetry Intake and Output Last 24 Hours 10/11/18 10/12/18 10/13/18 10/14/18 06:59 06:59 06:59 06:59 Intake Total 1000 7464 166 2530 Output Total 250 0 375 250 Balance 750 1300 315 990 Weight 180 lb 4.8 oz 180 lb 4.8 oz Intake: IV Fluids 1000 IVPB 100 mag 100 Oral 0 4709 496 4645 Output: Urine 250 0 375 250 Other: Estimated Void Large Large # Voids 1 Oxygen Devices in Use Now: None Neurology Exam: General: Frail ill appearing tall elderly man who is disheveled and is in no distress. HEENT: Normocephelic/atraumatic. Anterior laceration of the tongue slightly on the right. No active bleeding. Neck: Supple Extremities: No clubbing, cyanosis, or edema Neurological Findings: Awake, alert, and oriented to person but not place or time. He is having word finding difficulty. He has golndjkr-md-edrogw psychmotor slowing. Cranial Nerve: PERRL, EOM intact, VFF, no nystagmus, face symmetric bilaterally. Motor: s/s throughout, proximal and distal extremities x4 tone/bulk normal Sensation: intact to LT/PP bilaterally upper and lower extremities Deep Tendon Reflex: 2+ symmetric in the upper, 3+ at the knees and 1+ at the ankles bilaterally. Extensor plantar response bilaterally. Finger to nose, rapid alternating movements intact without tremor, no dysdiadochokinesia Gait: spastic gait in bilateral lower extremities. Result Diagrams: 10/13/18 06:09 10/13/18 06:09 Microbiology and Other Data: Microbiology 10/10/18 11:37 Aerobic Blood Culture - Preliminary Blood Venous No Growth Day 1 Anaerobic Blood Culture - Preliminary No Growth Day 1 10/10/18 10:40 Aerobic Blood Culture - Preliminary Blood Venous No Growth Day 1 Anaerobic Blood Culture - Preliminary No Growth Day 1 Assessment/Plan Mr. Lake is an 82-year-old man with history of undiagnosed cognitive impairment who presented to [facility] after a fall and disorientation. 1. 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 - He seemed to have developed agitation and aggressive behavior after the levetiracetam. - We agreed to discontinue levetiracetam and start Depakote sprinkles 250 mg twice daily. - Continue seizure precautions - He does not drive 2. Ventriculomegaly- concern for NPH given that he has rapid progressive dementia, incontinence, spasticity in the lower extremities, and gait abnormalities. Recommend outpatient LP to remove CSF and to assess if he has any cognitive or improvement in his motor function. We cannot do the LP here given that he is on Plavix which has to be held for 5-7 days. Please note that the patient should be closely followed by a physical therapy specialist who would document his motor function before and after the LP. Unfortunately, the ventriculomegaly has been there since 2013, so I don't think a large volume lumbar puncture will significantly improve his symptoms. Other differential diagnosis for his encephalopathy include post-ictal aphasia from a recent seizure. We excluded stroke given the negative DWI findings. He will need short term rehabilitation and most likely admission in a [facility] facility. 3. Arachnoid cyst- he would not be a great candidate for surgical resection give his age and cognitive impairment. This will be reassessed if he continues to have presumably seizure-like activity. 4. Acute encephalopathy manifesting as delirium - practice delirium measures. Pt has a 1:1 sitter at bedside. I will continue to follow. Discussed the above plan with Dawit (son) and Radha (Dawit's [id number] in [place] who preparation room worker be reached at [phone])
[2018-10-13] MEDS: traZODone TAB* 50 MG TAB PO PRN (20:28)
--- NOTE | 2018-10-13 22:30 | EEG ---
ELECTROENCEPHALOGRAPHY: DATE OF STUDY: 10/13/18 DATE READ: 10/13/18 TIME: 1543 to 1610 MEDICATIONS: 1. Depakote. 2. Heparin. 3. Aspirin. 4. Plavix. 5. Mag-Ox. 6. Trazodone. INDICATIONS: Mr. Lake is an 82-year-old man who has encephalopathy and intermittent agitation. This EEG was obtained to evaluate for epileptiform abnormalities or electrographic seizures. CLINICAL STATE: Predominant sleeping with some occasional wake state. The background lacked organization or clearly defined anterior-posterior voltage and frequency gradients. There was brief discernible posterior dominant rhythm of 6 Hz, but throughout the recording, the background consisted of diffuse dxkgko-bw-[id number] amplitude polymorphic 3-5 Hz delta and theta range slowing. There was emergence of faster frequencies with verbal and tactile stimulation. Hyperventilation and photic stimulation were not performed. Single electrode EKG showed a normal sinus rhythm with the rate of 70 beats beats per minute. IMPRESSION: This is an abnormal predominantly sleep with brief awakening stage due to the presence of diffuse but reactive slowing. These findings are suggestive of nonspecific mild-moderate diffuse encephalopathy which can been seen in toxic-metabolic disturbance, hypoxic-ischemic brain injury, postictal state, or medication effect. Clinical correlation is recommended. [id number] #: [id number]
[2018-10-14] MEDS ORDERED: Acetaminophen TAB* 325 MG PO PRN (00:27)
--- NOTE | 2018-10-14 09:11 | PN ---
Subjective Date of Service: 10/14/18 Interval History: Pt is sleeping currently, he does awaken to voice. He denies pain. When asked where we are he states he is at a hotel. Objective Active Medications: Acetaminophen (Tylenol Tab*) 650 mg PO Q6H PRN PRN Reason: PAIN Aspirin (Aspirin 81 Mg Chew Tab*) 81 mg PO DAILY [facility] Last Admin: 10/13/18 09:56 Dose: 81 mg Calcitriol (Rocaltrol Cap*) 0.25 mcg PO DAILY [facility] Last Admin: 10/13/18 09:59 Dose: 0.25 mcg Clopidogrel Bisulfate (Plavix Tab*) 75 mg PO DAILY [facility] Last Admin: 10/13/18 09:57 Dose: 75 mg Divalproex Sodium (Depakote Sprinkle Cap*) 250 mg PO BID [facility] Last Admin: 10/13/18 20:28 Dose: 250 mg Heparin Sodium (Porcine) (Heparin Vial(*)) 5,000 units SUBCUT Q12HR [facility] Last Admin: 10/13/18 20:32 Dose: 5,000 units Magnesium Oxide (Magox 400 Tab*) 800 mg PO DAILY [facility] Last Admin: 10/13/18 09:58 Dose: 800 mg Trazodone HCl (Desyrel Tab*) 25 mg PO BEDTIME PRN PRN Reason: Insomnia/Agitation Last Admin: 10/13/18 20:28 Dose: 25 mg Vital Signs - 8 hr 10/14/18 07:57 Pulse Rate 78 Respiratory 16 Rate Blood Pressure 123/60 (mmHg) O2 Sat by Pulse 97 Oximetry Oxygen Devices in Use Now: None Appearance: Elderly male lying in bed, sleeping, awakens to voice, NAD Eyes: No Scleral Icterus Ears/Nose/Mouth/Throat: Mucous Membranes Moist Respiratory: Symmetrical Chest Expansion and Respiratory Effort, Clear to Auscultation Cardiovascular: NL Sounds; No Murmurs; No JVD, RRR, No Edema Abdominal: NL Sounds; No Tenderness; No Distention Extremities: No Clubbing, Cyanosis Skin: No Nodules or Sclerosis Neurological: - - sleepy, speaks a few words Result Diagrams: 10/13/18 06:09 10/13/18 06:09 Microbiology and Other Data: Microbiology 10/10/18 11:37 Aerobic Blood Culture - Preliminary Blood Venous No Growth Day 1 Anaerobic Blood Culture - Preliminary No Growth Day 1 10/10/18 10:40 Aerobic Blood Culture - Preliminary Blood Venous No Growth Day 1 Anaerobic Blood Culture - Preliminary No Growth Day 1 Assess/Plan/Problems-Billing Mr. Lake is an 82-year-old man with history of undiagnosed cognitive impairment who presented to [facility] after a fall and disorientation. 1. 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 - He seemed to have developed agitation and aggressive behavior after the levetiracetam. - We agreed to discontinue levetiracetam and start Depakote sprinkles 250 mg twice daily. - Continue seizure precautions - He does not drive 2. Ventriculomegaly- concern for NPH given that he has rapid progressive dementia, incontinence, spasticity in the lower extremities, and gait abnormalities. Recommend outpatient LP to remove CSF and to assess if he has any cognitive or improvement in his motor function. We cannot do the LP here given that he is on Plavix which has to be held for 5-7 days. Please note that the patient should be closely followed by a physical therapy specialist who would document his motor function before and after the LP. Unfortunately, the ventriculomegaly has been there since 2013, so I don't think a large volume lumbar puncture will significantly improve his symptoms. Other differential diagnosis for his encephalopathy include post-ictal aphasia from a recent seizure. We excluded stroke given the negative DWI findings. He will need short term rehabilitation and most likely admission in a care home senior living facility. 3. Arachnoid cyst- he would not be a great candidate for surgical resection give his age and cognitive impairment. This will be reassessed if he continues to have presumably seizure-like activity. 4. Acute encephalopathy manifesting as delirium - practice delirium measures. Pt has a 1:1 sitter at bedside. I will continue to follow. Discussed the above plan with Dawit (son) and Radha (Dawit's pnjdnw-by-aip in [place] who wood boatbuilder be reached at [phone]) - Patient Problems (1) Change in mental status Current Visit: Yes Status: Acute Code(s): R41.82 - ALTERED MENTAL STATUS, UNSPECIFIED SNOMED Code(s): 310102741 Comment: Shahbaz is more calm today than yesterday when I saw him. He answered a couple questions for me. I would like to see him up to a chair and see him more alert prior to d/cing him to [facility] for STR. Will continue depakote sprinkles for possible seizures as cause to his sudden change in mental status. Will try to arrange for outpatient LP and take the patient off his plavix 7 days prior. (2) CAD (coronary artery disease) Current Visit: Yes Status: Acute Code(s): I25.10 - ATHSCL HEART DISEASE OF [place] CORONARY ARTERY W/O ANG PCTRS SNOMED Code(s): 35912257 Comment: Continue plavix and ASA for now. Pt will need to be off plavix for 1 week prior to LP. (3) DVT prophylaxis Current Visit: Yes Status: Acute Code(s): Z29.9 - ENCOUNTER FOR PROPHYLACTIC MEASURES, UNSPECIFIED SNOMED Code(s): 281897777 Comment: SQ heparin (4) Full code status Current Visit: Yes Status: Acute Code(s): Z78.9 - OTHER SPECIFIED HEALTH STATUS SNOMED Code(s): 569018783 Status and Disposition: .
[2018-10-14] MEDS: Clopidogrel TAB* 75 MG PO SCH (10:23)
[2018-10-14] MEDS: Magnesium Oxide TAB* 400 MG PO SCH (10:24)
[2018-10-14] MEDS: Aspirin 81 mg CHEW TAB* 81 MG TAB.CHEW PO SCH (10:25)
[2018-10-14] MEDS: Calcitriol CAP* 0.25 MCG PO SCH (10:25)
[2018-10-14] MEDS: Divalproex Sprinkle CAP* 125 MG PO SCH ×2 (10:27→21:06)
[2018-10-14] MEDS: Heparin VIAL(*) 5000 UNITS/ML VIAL (FIVE THOUSAND) SUBCUT SCH ×2 (10:30→21:07)
[2018-10-15] MEDS ORDERED: Magnesium Hydroxide LIQ* 30 ML UDC PO ONE (07:31)
[2018-10-15] MEDS ORDERED: Bisacodyl SUPP* 10 MG SUPP PR ONE (07:31)
[2018-10-15] MEDS ORDERED: Polyethylene Glycol 3350* 17 GM PACKET PO PRN (07:32)
[2018-10-15] MEDS: Aspirin 81 mg CHEW TAB* 81 MG TAB.CHEW PO SCH (08:27)
[2018-10-15] MEDS: Clopidogrel TAB* 75 MG PO SCH (08:27)
[2018-10-15] MEDS: Magnesium Oxide TAB* 400 MG PO SCH (08:27)
[2018-10-15] MEDS: Calcitriol CAP* 0.25 MCG PO SCH (08:28)
[2018-10-15] MEDS: Divalproex Sprinkle CAP* 125 MG PO SCH (08:28)
[2018-10-15] MEDS: Heparin VIAL(*) 5000 UNITS/ML VIAL (FIVE THOUSAND) SUBCUT SCH (08:28)
--- NOTE | 2018-10-15 10:04 | DS ---
CC: Dr. Mcclelland * DISCHARGE SUMMARY: DATE OF ADMISSION: 10/10/18 DATE OF DISCHARGE: 10/15/18 PRIMARY CARE PROVIDER: Dr. Mcclelland. PRINCIPAL DIAGNOSIS: Possible seizure causing fall and altered mental status secondary to possible prolonged postictal state plus/minus hospital-acquired delirium. SECONDARY DIAGNOSES: 1. Coronary artery disease. 2. Hypertension. 3. Dyslipidemia. DISCHARGE MEDICATIONS: 1. PreserVision AREDS 2 one cap p.o. b.i.d. 2. Xalatan 1 drop to the right eye q.h.s. 3. Timolol 0.5% one drop to both eyes twice daily. 4. Plavix 75 mg p.o. daily. 5. Calcitriol 0.25 mcg p.o. daily. 6. Trazodone 25 mg p.o. q.h.s. p.r.n. insomnia. 7. MiraLax 17 g p.o. daily p.r.n. constipation. 8. Magnesium oxide 800 mg p.o. daily. 9. Depakote Sprinkles 250 mg p.o. twice daily. 10. Aspirin 81 mg p.o. daily. HOSPITAL COURSE: Mr. Lake is an 82-year-old male who was last normal at approximately 7 p.m. on the night prior to admission. A few hours prior to the admission, the patient's son heard a thud in the house and the patient was found down on the bathroom floor. The patient seemed confused at that time. The patient was brought to the emergency room for evaluation. A CT scan of the brain was initially performed in the ER and did not reveal any evidence of any acute intracranial abnormality. MRI of the brain was obtained the following day , which revealed a limited study secondary to extensive patient motion artifact. Within the limitations of the study, there is no restricted diffusion to suggest acute infarct. He was seen by Dr. Cho who recommended EEG; this was also obtained on 10/11/18. The EEG was felt to be an abnormal waking EEG due to slow posterior dominant rhythm and prominent delta slowing over the left frontotemporal region. These findings are suggestive of mild nonspecific encephalopathy, which can be seen in the setting of neurodegenerative disorder with prominent slowing over the left frontal temporal region suggestive of focal neuronal dysfunction in that area. There were no clear epileptiform discharges or electrographic seizures. The patient, however, was felt to be at risk for seizures as he has a known arachnoid cyst that is compressing on the left temporal lobe, which can cause seizures. Therefore, the patient was started on Keppra 250 mg twice daily. By 10/13/18, the patient was much more agitated than he had been. The Keppra was discontinued as this could worsen agitation and he was started on Depakote 250 mg p.o. twice daily for possible seizures. The patient has continued to be somewhat slow to respond to questions and not carry on a fluent conversation. The patient has had an isolated conversation with his son on the evening of , which was different from how he had been interacting with staff. There has been no significant improvement in the patient's symptoms. At this point, it is felt that he will need subacute rehab. I question if the patient may have had a seizure initially with a postictal state, then developed hospital- acquired delirium on top of that, which now will need to clear over time. There is also concern that the patient has underlying dementia, which perhaps has progressed, though the sudden decline seems unlikely. Lastly, the patient has enlarged ventricles on imaging that are out of proportion to the cortical atrophy. Normal pressure hydrocephalus is a consideration. The patient has been on Plavix and aspirin. A lumbar puncture has been recommended by Neurology. I will try to have this set up prior to the patient leaving. The patient will need to be off Plavix for 7 days prior to this procedure. Two weeks after the lumbar puncture is done, the patient will need a followup appointment with Dr. Cho at the medical office building in [place]. On the day of discharge, the patient is awake, he is alert, he is sitting up in bed, in no acute distress. He seems confused. Cardiac exam reveals a normal S1 , S2, with a regular rate and rhythm. His lungs are clear. His abdomen is soft , nontender, and nondistended. FOLLOWUP CONCERNS: The patient is being discharged to [facility] today, . Activity level is as tolerated. Diet is regular. Condition on discharge is stable. The patient will need a Depakote level obtained on 10/18/18. I will try to arrange for lumbar puncture as an outpatient and we will include this information on the discharge packet. Again, the patient will need a followup appointment with Dr. Saada approximately 2 weeks after the lumbar puncture. TIME SPENT: Thirty five minutes was spent discharging this patient. [id number]/CPS #: [id number]
[2018-10-15 12:02] VITALS: BP 151/79
== END 2018-10-15 17:47 | DRG 101 ==
LOC: ED 10:14 → MEDTELE 13:18
PROVIDERS: ADMIT Student in an Organized Health Care Education/Training Program; ATTEND Hospitalist
PROC: 4A10X4Z Monitoring of Central Nervous Electrical Activity, External Approach (ICD-10-PCS; principal; 2018-10-13)
DX: R56.9 Unspecified convulsions (principal); F03.91 Unspecified dementia, unspecified severity, with behavioral disturbance; F05 Delirium due to known physiological condition; G91.9 Hydrocephalus, unspecified; I25.10 Atherosclerotic heart disease of native coronary artery without angina pectoris; E78.00 Pure hypercholesterolemia, unspecified; E78.5 Hyperlipidemia, unspecified; N18.9 Chronic kidney disease, unspecified; I12.9 Hypertensive chronic kidney disease with stage 1 through stage 4 chronic kidney disease, or unspecified chronic kidney disease; W19.XXXA Unspecified fall, initial encounter; Y92.9 Unspecified place or not applicable; R40.2362 Coma scale, best motor response, obeys commands, at arrival to emergency department; R40.2142 Coma scale, eyes open, spontaneous, at arrival to emergency department; R40.2242 Coma scale, best verbal response, confused conversation, at arrival to emergency department; I44.0 Atrioventricular block, first degree; E11.22 Type 2 diabetes mellitus with diabetic chronic kidney disease; E03.9 Hypothyroidism, unspecified; R32 Unspecified urinary incontinence; S01.512A Laceration without foreign body of oral cavity, initial encounter; R41.89 Other symptoms and signs involving cognitive functions and awareness; G93.0 Cerebral cysts; Z79.82 Long term (current) use of aspirin; Z82.49 Family history of ischemic heart disease and other diseases of the circulatory system; Z95.5 Presence of coronary angioplasty implant and graft; Z95.1 Presence of aortocoronary bypass graft; Z79.02 Long term (current) use of antithrombotics/antiplatelets
CPT/HCPCS: 36415; 70450; 70551; 71045; 80053; 80061; 81003; 81015; 82140; 82550; 82607; 83036; 83605; 83735; 84100; 84146; 84443; 84484; 85025; 85027; 85610; 87040; 93005; 95816; 95819; 99284; A9270-GY; G8978-GP-CI; G8979-GP-CH; J1644; J3475